=== PATIENT | female | born 1945 | race Caucasian/White ===

== ENCOUNTER 2021-12-31 11:28 | Inpatient (IN) | payer MEDICARE, BC, OTHER ==
[~2021-12-31] VITALS: Ht 167.6 cm; Wt 60.8 kg
--- NOTE | 2021-12-31 11:47 | NUR ---
BIBS FOR WONDERING, NOT TAKING MEDICATIONS AND POOR PO INTAKE. DENIES SI/HI. IN ROOM AIR AND DENIES SOB. RESPIRATION REGULAR AND UNLABORED. DENIES PAIN. WILL CONTINUE TO MONITOR THE PATIENT.
--- NOTE | 2021-12-31 11:51 | NUR ---
SEEN AND EXAMINED BY .
--- NOTE | 2021-12-31 11:58 | NUR ---
COVID ANTIGEN SWAB DONE AND SENT TO THE LAB
[2021-12-31 12:03] LABS: BASOPHILS % (AUTO) 0.7 % (0.0-2.0); EOSINOPHILS % (AUTO) 1.7 % (0.0-6.0); HEMATOCRIT 42 % (33-45); LYMPHOCYTES # (AUTO) 1.3 K/uL (0.8-4.8); LYMPHOCYTES % (AUTO) 19.1 % (20.0-44.0); MEAN CORPUSCULAR HGB CONC 33 g/dl (31.0-36.0); MEAN CORPUSCULAR VOLUME 99 fL (82-100); MONOCYTES # (AUTO) 0.4 K/uL (0.1-1.30); NEUTROPHILS # (AUTO) 4.8 K/uL (1.8-8.9); NEUTROPHILS % (AUTO) 72.5 % (43.0-81.0); PLATELET COUNT (AUTO) 233 K/uL (150-450); WHITE BLOOD COUNT (AUTO) 6.7 K/uL (4.3-11.0)
--- NOTE | 2021-12-31 12:23 | NUR ---
URINE COLLECTED AND SENT TO THE LAB
--- NOTE | 2021-12-31 12:26 | NUR ---
THE PATIENT IS TAKEN TO CT [facility]IA [facility]
[2021-12-31 12:31] LABS: ALANINE AMINOTRANSFERASE 22 U/L (12-78); ALBUMIN 4.1 g/dL (3.4-5.0); ALKALINE PHOSPHATASE 65 U/L (46-116); ASPARTATE AMINOTRANSFERASE 27 U/L (15-37); BILIRUBIN,DIRECT 0.2 mg/dL (0.0-0.2); BILIRUBIN,TOTAL 0.8 mg/dL (0.2-1.0); CALCIUM, SERUM 8.8 mg/dL (8.5-10.1); CARBON DIOXIDE 27 mmol/L (21-32); CHLORIDE 107 mmol/L (98-107); CREATININE 1.2 mg/dL (0.6-1.3); GLUCOSE 100 mg/dL (74-106); POTASSIUM 3.8 mmol/L (3.5-5.1); SODIUM SERUM 144 mmol/L (136-145); TOTAL PROTEIN, SERUM 6.7 g/dL (6.4-8.2); UREA NITROGEN, BLOOD 20 mg/dL (7-18)
[2021-12-31 12:33] LABS: BILIRUBIN,URINE NEGATIVE (NEGATIVE); COLOR,URINE YELLOW (YELLOW); LEUKOCYTE ESTERASE ,URINE NEGATIVE (NEGATIVE); NITRITE, URINE NEGATIVE (NEGATIVE); PROTEIN,URINE NEGATIVE (NEGATIVE); UGLUCOSE NEGATIVE (NEGATIVE); UROBILINOGEN,URINE 0.2 EU/dL (0.2)
[2021-12-31 12:34] LABS: ACETAMINOPHEN < 2 ug/ml (10-30); ALCOHOL, BLOOD < 3 mg/dL (0-0)
--- NOTE | 2021-12-31 12:35 | NUR ---
THE PATIENT IS BACK FROM CT VIA [facility]
[2021-12-31 12:58] LABS: BACTERIA,URINE Moderate /HPF (None Seen); SQUAMOUS EPITHELIAL CELL,UR Moderate /HPF (None Seen)
[2021-12-31 12:59] LABS: CALCIUM OXALATE CRYSTALS,UR Few /HPF (None Seen); YEAST,URINE Few /HPF (None Seen)
--- NOTE | 2021-12-31 16:47 | NUR ---
STEPHANE BONILLA [phone] WILL SEE PT.
--- NOTE | 2021-12-31 18:22 | NUR ---
GOT BED 219-B
--- NOTE | 2021-12-31 19:19 | NUR ---
report given to nurse Ramirez for vincent
--- NOTE | 2021-12-31 21:09 | NUR ---
REPORT GIVEN TO FA
--- NOTE | 2021-12-31 21:39 | NUR ---
PT TRANSFERRED TO [facility]IA [facility]. ALL BELONGINGS WITH PT
--- NOTE | 2021-12-31 21:39 | NUR ---
TRANSFERRED TO 219 IN STABLE CONDITION
[2021-12-31] MEDS ORDERED: MAGNESIUM HYDROXIDE 30 ML UDC PO PRN (22:00)
[2021-12-31] MEDS ORDERED: MAG HYDROX/AL HYDROX/SIMETH 30 ML UDC PO PRN (22:00)
[2021-12-31] MEDS ORDERED: LORAZEPAM 0.5 MG TABLET PO PRN (22:00)
[2021-12-31] MEDS ORDERED: BLOOD SUGAR DIAGNOSTIC 1 EACH STRIP IN ONE (22:00)
--- NOTE | 2021-12-31 23:09 | NUR ---
GPS ADMISSION RN NOTE: RECEIVED PATIENT FROM HOME. PATIENT ARRIVAL TIME 2144 VIA STRETCHER BY 1 ER STAFF. PATIENT ADMITTED ON A 5150 HOLD FOR DANGER TO SELF AND GRAVELY DISABLED. PER HOLD, PATIENT'S , WHO IS THE SINK MAKER FELL AND UNABLE TO CARE FOR PATIENT AT THE MOMENT. PATIENT HAS NOT BEEN TAKING HER MEDICATIONS, IS CONFUSED, WANDERING AROUND, AND HAS POOR INTAKE. UPON ARRIVAL TO UNIT, PATIENT APPEARS TO BE CALM WITH RESPIRATIONS EVEN AND UNLABORED WITH NO SOB NOTED. PATIENT SEEMS TO BE ALERT ORIENTED X2-3. PATIENT CURRENTLY DENIES ANY SUICIDAL IDEATION AND HOMICIDAL IDEATION AT THIS TIME. PATIENT ADVISED OF HOLD AND PATIENT RIGHTS BOOKLET WAS GIVEN. PATIENT BELONGINGS ARE CHECKED IN, INCLUDING CONTRABANDS (WHICH PATIENT HAS BROUGHT A CANE). SKIN ASSESSMENT COMPLETED WITH NO APPARENT SKIN ISSUES NOTED. PATIENT HISTORY OF ATRIAL FIBRILATION AND ALZHEIZMERS DEMENTIA. PATIENT VERBALLY REPORTED HAVING BREAST CANCER, WHICH WAS NOT NOTED IN HER HISTORY. PATIENT STATED SHE HAD THE MODERNA VACCINE FOR COVID. PATIENT THEN ORIENTED TO HER ROOM AND UNIT. PATIENT SEEMS TO BE ANXIOUS AND CONFUSED AT TIMES FOCUSED ON APPOINTMENTS AND CALLING HER (WHICH THE HAS NOT ANSWERED THE PHONE YET). LEFT MESSAGE FOR PATIENT'S PATIENT ALLOWED HIM TO BE THE NEXT OF KIN. REDIRECTED PATIENT AT TIMES BECAUSE SHE KEEPS COMING UP TO NURSES STATION ASKING FOR THE SAME REQUEST BY CALLING HER . PATIENT EVENTUALLY STAYED IN HER ROOM FOR THE REST OF THE NIGHT. CALL LIGHT WITHIN REACH. 2 SIDE RAILS UP. BED LOCKED. WILL CONTINUE TO MONITOR Q 15 MINUTES FOR SAFETY AND BEHAVIOR.
[2022-01-01 07:30] LABS: ALBUMIN 3.5 g/dL (3.4-5.0); BILIRUBIN,TOTAL 0.6 mg/dL (0.2-1.0); CALCIUM, SERUM 8.9 mg/dL (8.5-10.1); POTASSIUM 3.9 mmol/L (3.5-5.1); TOTAL PROTEIN, SERUM 5.9 g/dL (6.4-8.2)
[2022-01-01 07:33] LABS: CHOLESTEROL 179 mg/dL (<200); HDL CHOLESTEROL 82 mg/dL (40-60); LDL 85 mg/dL (0-99); TRIGLYCERIDES 30 mg/dL (30-150)
--- NOTE | 2022-01-01 10:43 | NUR ---
SASKIA Initial Discharge Plan: Patient resides at [address] [place] [address] with her Phil Adams ([phone]). Patient wants to return home with her . SW will contact patient's to discuss treatment plan and discharge plan. SASKIA will work with family, patient and MD to coordinate a safe and proper discharge plan.
--- NOTE | 2022-01-01 10:44 | NUR ---
SW Admit Source: Pt was placed a on 5150 hold for danger to herself and GD. Pt was brought in by her son Scotty ([phone]) who stated pt has not been eating at home/taking her medications and has been confused. Patient resides at [address] [place] [address] with her Phil Adams ([phone]). Patient wants to return home with her . SW will contact patient's person to notify Scotty (son); [phone]) to discuss treatment plan.
--- NOTE | 2022-01-01 11:58 | NUR ---
SASKIA Family Contact: SW spoke with pt.'s son Scotty ([phone]). Scotty ([phone]) stated that the pt. was diagnosed last year with Alzheimer's but has been forgetful for a few years prior. Scotty ([phone]) stated that the pt.'s Phil Adams ([phone]) has also become forgetful and they currently live alone together at [address] [place] [address]. Scotty ([phone]) stated neither of them can remember to eat or take their medications. Scotty shared that pt's is also at the hospital on the third floor (medical floor). Scotty ([phone]) stated that he is the POA as well as his brother Clint ([phone]) and that it is in pt's chart. Scotty ([phone]) stated that he would like to place the pt. at a residential facility. SW will remain available as needed.
[2022-01-01] MEDS: SERTRALINE HCL 25 MG TABLET PO SCH ×2 (13:07→16:29)
[2022-01-01 16:00] VITALS: BP 149/84
[2022-01-01 19:45] VITALS: BP 132/66
[2022-01-01 20:17] VITALS: BP 132/66
[2022-01-01] MEDS: MIRTAZAPINE 15 MG TABLET PO SCH (21:22)
[2022-01-01] MEDS ORDERED: MEMANTINE HCL 5 MG TABLET PO SCH (22:00)
--- NOTE | 2022-01-01 23:31 | NUR ---
GPS RN NOTE PATIENT IS SLEEPING COMFORTABLY AT THIS TIME. NO ACUTE CHANGES NOTED. WILL CONTINUE TO MONITOR.
--- NOTE | 2022-01-02 07:10 | NUR ---
GPS RN NOTE CALLED RT AND INFORMED THAT PATIENT HAS ROUTINE EKG ORDER AND RT TECH ACKNOWLEDGED IT.
[2022-01-02 08:00] VITALS: BP 134/74
--- NOTE | 2022-01-02 09:10 | NUR ---
SNF Contact: SASKIA contacted Ritesh ([phone]) who stated that pt is accepted at [facility] ([phone]) who stated that pt's is currently at the facility and they saved her a bed. SASKIA sent clinicals H & P, progress notes, and medication list.
--- NOTE | 2022-01-02 10:08 | NUR ---
SASKIA Family Contact: SW spoke with pt.'s son Scotty ([phone]) and he stated he wants pt at [facility] and would want Dr. Gutierrez to follow pt.
[2022-01-02] MEDS: ACETAMINOPHEN 325 MG TABLET PO PRN (11:30)
--- NOTE | 2022-01-02 11:31 | NUR ---
TYLENOL 650MG GIVEN FOR CHRONIC HIP PAIN. WILL CONTINUE TO MONITOR
[2022-01-02] MEDS: SERTRALINE HCL 25 MG TABLET PO SCH ×2 (12:39→16:42)
--- NOTE | 2022-01-02 14:44 | NUR ---
RIGHT HIP XRAY ORDERED BY DR MACARIO. PT COMPLAINS OF RIGHT HIP PAIN. PT STATES HAVING HAD HIP SURGERY I N THE PAST.
[2022-01-02 16:00] VITALS: BP 133/76
--- NOTE | 2022-01-02 18:49 | NUR ---
AWAITING PELVIC XRAY RESULTS.
[2022-01-02 20:00] VITALS: BP 141/91
[2022-01-02] MEDS: MEMANTINE HCL 5 MG TABLET PO SCH (21:10)
[2022-01-02] MEDS: MIRTAZAPINE 15 MG TABLET PO SCH (21:10)
[2022-01-03 08:00] VITALS: BP 132/65
[2022-01-03] MEDS: ACETAMINOPHEN 325 MG TABLET PO PRN (09:30)
--- NOTE | 2022-01-03 09:30 | NUR ---
RN-NOTES PATIENT REQUESTING FOR TYLENOL FOR HER LOWER BACK PAIN. TYLENOL 650MG P.O GIVEN PRN ORDER.
[2022-01-03] MEDS: SERTRALINE HCL 25 MG TABLET PO SCH ×2 (12:39→17:10)
[2022-01-03 16:00] VITALS: BP 141/79
[2022-01-03 20:00] VITALS: BP 149/81
[2022-01-03 21:30] VITALS: BP 130/76
[2022-01-03] MEDS: MEMANTINE HCL 5 MG TABLET PO SCH (21:34)
[2022-01-03] MEDS: MIRTAZAPINE 15 MG TABLET PO SCH (21:37)
[2022-01-04 08:00] VITALS: BP 144/88
[2022-01-04] MEDS: SERTRALINE HCL 25 MG TABLET PO SCH ×2 (12:22→16:34)
[2022-01-04] MEDS: ENSURE ENLIVE CHOC 237 ML CAN PO SCH ×3 (15:00→17:22)
--- NOTE | 2022-01-04 15:00 | NUR ---
RN-NOTES ENSURE NOT ADMINISTER PATIENT REFUSED.
[2022-01-04 16:00] VITALS: BP 129/92
[2022-01-04 20:00] VITALS: BP 136/73
[2022-01-04] MEDS: MEMANTINE HCL 5 MG TABLET PO SCH (21:12)
[2022-01-04] MEDS: MIRTAZAPINE 15 MG TABLET PO SCH (21:13)
[2022-01-04] MEDS: TEMAZEPAM 7.5 MG CAPSULE PO PRN (23:24)
--- NOTE | 2022-01-04 23:24 | NUR ---
GPS RN NOTES: INSOMNIA PATIENT C/O INABILITY TO SLEEP. ADMINISTERED RESTORIL 7.5MG PO ORDERED. WILL CONTINUWE TO MONITOR.
[2022-01-05 08:00] VITALS: BP 132/58
[2022-01-05] MEDS: ENSURE ENLIVE CHOC 237 ML CAN PO SCH ×2 (08:01→16:12)
[2022-01-05] MEDS: MEMANTINE HCL 5 MG TABLET PO SCH ×2 (08:28→21:17)
--- NOTE | 2022-01-05 09:41 | NUR ---
SW Family: SW notified pt's son Scotty ([phone]) and reported that pt will be discharged 01/08/22Saturday, to [facility]. He was agreeable about this plan.
--- NOTE | 2022-01-05 10:02 | NUR ---
Court Hearing: Patient's court hearing for 0120 was today and it was upheld for GD.
[2022-01-05] MEDS: SERTRALINE HCL 25 MG TABLET PO SCH ×2 (12:32→16:11)
[2022-01-05 16:00] VITALS: BP 113/71
[2022-01-05 19:41] VITALS: BP 144/90
[2022-01-05 19:55] VITALS: BP 144/90
[2022-01-05] MEDS: MIRTAZAPINE 15 MG TABLET PO SCH (21:36)
[2022-01-06 08:00] VITALS: BP 148/90
[2022-01-06] MEDS: MEMANTINE HCL 5 MG TABLET PO SCH ×2 (08:56→21:07)
[2022-01-06] MEDS: ENSURE ENLIVE CHOC 237 ML CAN PO SCH ×2 (08:56→17:40)
[2022-01-06] MEDS: SERTRALINE HCL 25 MG TABLET PO SCH ×2 (12:49→17:40)
[2022-01-06 16:00] VITALS: BP 112/73
[2022-01-06 19:55] VITALS: BP 118/85
[2022-01-06 20:00] VITALS: BP 118/85
[2022-01-06] MEDS: MIRTAZAPINE 15 MG TABLET PO SCH (21:07)
[2022-01-06] MEDS: TEMAZEPAM 7.5 MG CAPSULE PO PRN (23:49)
--- NOTE | 2022-01-06 23:52 | NUR ---
GPS RN NOTE PATIENT UNABLE TO SLEEP. RESTORIL 7.5MG PRN DOSE GIVEN TO AID PATIENT. WILL CONTINUE TO MONITOR PATIENT.
[2022-01-07 08:00] VITALS: BP 136/77
[2022-01-07] MEDS: ENSURE ENLIVE CHOC 237 ML CAN PO SCH ×2 (08:00→17:52)
[2022-01-07] MEDS: MEMANTINE HCL 5 MG TABLET PO SCH ×2 (09:00→21:24)
[2022-01-07] MEDS: SERTRALINE HCL 25 MG TABLET PO SCH ×2 (13:30→17:51)
[2022-01-07 16:00] VITALS: BP 125/59
[2022-01-07 20:01] VITALS: BP 129/73
[2022-01-07] MEDS: MIRTAZAPINE 15 MG TABLET PO SCH (21:25)
[2022-01-07] MEDS: ACETAMINOPHEN 325 MG TABLET PO PRN (21:26)
[2022-01-07] MEDS: TEMAZEPAM 7.5 MG CAPSULE PO PRN (21:26)
--- NOTE | 2022-01-07 21:27 | NUR ---
Pt c/o lower back pain 01/25. Tylenol 650 mg po prn given as ordered. Pt c/o insomnia. Restoril 7.5 mg po prn given as ordered. Will continue to monitor.
--- NOTE | 2022-01-07 23:15 | NUR ---
Post 1 hr Tylenol effective. WI 0/10. Post 1 hr Restoril effective. Pt asleep easy to arouse. Will continue to monitor. Frequent visual check done for safety.
[2022-01-08 08:00] VITALS: BP 116/90
--- NOTE | 2022-01-08 08:01 | NUR ---
SW Discharge Note: Pt will be discharged [facility] [place] [address] [place] [address]; ([phone]). Please arrange ambulance at 1PM. Pts eli Fajardo ([phone]) is aware and agreeable with dc. Vandana Grady from [facility] ([phone]) stated that pt is welcomed today. Upon discharge, the pt appears to be in a dysphoric mood and presented with a congruent affect. Pt appears to be alert and oriented x1 (self). Pt denies both suicidal and homicidal ideation as well as auditory and visual hallucinations. Pt appears to be ambulatory with a steady gait. Patient will follow-up with (psychiatrist) Dr. Gutierrez [address] [place] [phone]; ([phone]). Pt will follow up with ([facility] Operator) Dr. Chery located at [address] [place] [address]; ([phone]). The choice of vendor form and multidisciplinary exit care form were done, printed, signed, and given to the patient.
[2022-01-08] MEDS: MEMANTINE HCL 5 MG TABLET PO SCH (09:15)
[2022-01-08] MEDS: ENSURE ENLIVE CHOC 237 ML CAN PO SCH (09:27)
[2022-01-08] MEDS: SERTRALINE HCL 25 MG TABLET PO SCH (13:56)
--- NOTE | 2022-01-08 14:15 | NUR ---
Patient discharged to [facility] in stable condition.Compliant with medications ,cooperative with treatment plans Patient denies SI/HI/AVH .Behavior improved ,psychiatric tx plans met ,medical tx plans differed for for continual monitoring .Educated pt about after care plan (Exit -care)and copy provided .Returned personal belongings to patient med list given and explained to patient able to verbalize understanding, report given to Lisette RN in facility .Vs stable ,no c/o pain .Patient seen by and pacual DNP with discharge orders .Patient discharge at 1415 with ambulance.
== END 2022-01-08 14:15 | DRG 885 ==
LOC: ER 11:30 → GPS 19:24
PROVIDERS: ADMIT Psychiatry & Neurology Psychosomatic Medicine; ATTEND Nurse Practitioner Acute Care
DX: F39 Unspecified mood [affective] disorder (principal); F29 Unspecified psychosis not due to a substance or known physiological condition; F41.9 Anxiety disorder, unspecified; F32.9 Major depressive disorder, single episode, unspecified; G30.9 Alzheimer's disease, unspecified; F02.80 Dementia in other diseases classified elsewhere, unspecified severity, without behavioral disturbance, psychotic disturbance, mood disturbance, and anxiety; F41.0 Panic disorder [episodic paroxysmal anxiety]; I48.91 Unspecified atrial fibrillation; Z96.642 Presence of left artificial hip joint; Z73.6 Limitation of activities due to disability; Z20.822 Contact with and (suspected) exposure to COVID-19
CPT/HCPCS: 36415; 70450-TC; 71045-TC; 72170-TC; 80048-TC; 80053-TC; 80061-TC; 80076-TC; 81001; 82962-TC; 83735-TC; 84484-TC; 85025-TC; 87081-TC; 87086-TC; 97116-TC; 97530-TC; C9803; G0480